=== PATIENT | male | born 1990 | race Caucasian/White ===

== ENCOUNTER 2017-10-28 01:37 | Emergency (ER) | payer MEDICAID ==
[~2017-10-28] VITALS: Ht 167.6 cm; Wt 68.0 kg
[~2017-10-28 01:37] MED LIST: DICY10CA88 PO; LACT1CAP14 MT; LOPE2TAB26 PO; OMEP20TA15 PO; SIMV20TA6 PO
[2017-10-28] MEDS ORDERED: IBUPROFEN 600MG TABLET PO ONE (03:45)
[2017-10-28 04:55] VITALS: BP 100/68
== END 2017-10-28 05:47 | disposition home or self-care (01) ==
LOC: ER 01:37
DX: R07.89 Other chest pain (principal); R20.0 Anesthesia of skin; R03.0 Elevated blood-pressure reading, without diagnosis of hypertension; K21.9 Gastro-esophageal reflux disease without esophagitis
CPT/HCPCS: 93005; 99283